=== PATIENT | female | born 1990 | race Caucasian/White ===

== ENCOUNTER 2018-12-26 00:32 | Emergency (ER) | payer SELFPAY ==
[2018-12-26 00:32] VITALS: BP 159/123; PULSE 111; RESP 18; TEMP 36.4; O2SAT 99; BMI 23.0
--- NOTE | 2018-12-26 02:49 | ED.VIS.GEN ---
History of Present Illness Chief Complaint: Dental Narrative: Patient is a 28-year-old female who presents with right facial pain and swelling. Symptoms began yesterday morning. She has developed market swelling over her right jaw. She complains of pain and difficulty opening the mouth. No fevers. No nausea or vomiting. She has a prior history of dental problems but no prior dental procedures or surgeries. No history of symptoms to this extent. She takes no daily medications. Past Medical History - Allergies and Home Meds Allergies/Adverse Reactions: Allergies No Known Allergies Allergy (Verified 12/26/18 00:35) Primary Care Physician: Care Physician,No Primary [Primary Care Provider] - Past Medical History: None Smoking Status: Current every day smoker Review of Systems All systems negative except as indicated General: Denies: Fever ENT: Reports: - - Dental/facial pain and swelling Cardiovascular: Denies: Chest pain Respiratory: Denies: Dyspnea Gastrointestinal: Denies: Nausea, Vomiting Physical Exam Vital Signs/Narrative: Vital Signs Temp Pulse Resp BP Pulse Ox 12/26/18 00:32 97.5 F L 111 H 18 159/123 H 99 Inital Vital Signs reviewed: Yes General: Well nourished Head: Normocephalic Eyes: EOMI ENT: - - Marked swelling of the right face/jaw, trismus, focal severe decay of the right mandibular second and third molars, no fluctuance Cardiovascular: - - Heart is regular tachycardia without murmur Respiratory: No distress, CTA bilaterally Abdomen: Soft Skin: Normal color Neurological: Alert Psychological: Normal affect Diagnostic/Tx/Re-eval Impressions Soft Tissue Neck CT 12/26/18 04:40 IMPRESSION: Large amount of soft tissue swelling overlying the right mandibular region with reactive lymph nodes.. Periapical lucency adjacent to the right first mandibular molar concerning for dental abscess formation. Electronically Signed: Ferdinand Fortune, at 5:42 EST Tel , Service support , 12/26/18 04:40 CT Neck [Soft Tissue Neck without Contr] [CT] Stat - Medical Decision Making Initial plan was for laboratory studies and a CT with IV contrast. Multiple IV attempts were made. Multiple IV attempts were made by nursing and myself under ultrasound guidance. I actually was able to obtain IV access under ultrasound guidance with a 20-gauge IV in the left upper arm. This flushed easily. She was given Toradol. However when IV fluids were started she was complaining of severe burning. She requested that the IV be removed. We are unable to draw blood from this either. I then discussed femoral venipuncture for laboratory studies which was also refused. Therefore a CT was obtained without contrast. This does show a large amount of soft tissue swelling and findings consistent with a periapical abscess. Patient was able to swallow pills here and was given Leadore and clindamycin. She is resting comfortably on reevaluation. Given the degree of swelling and that she does have an abscess she will likely need some type of intervention. I spoke to Dr. Noel, local oral maxillofacial surgeon who is willing to see the patient in follow-up. I will have patient call his office. Patient will be discharged on Leadore and clindamycin. He does understand to return for new or worsening symptoms. She was discharged. ED Disposition - Plan for ED Patient: Disposition: Home or Assisted Living Diagnosis: Periapical abscess Instructions: Dental Abscess Prescriptions: Clindamycin HCl [Cleocin] 300 mg PO Q6H #40 cap Prescription Printed Hydrocodone Bitart/Apap 5-325 [Leadore 5MG-325MG] 1 tab PO Q6H PRN PRN 3 Days #10 tab PRN Reason: Pain Prescription Printed Referrals: Care Physician,No Primary [Primary Care Provider] - Bernardino Noel DDS [STAFF PHYSICIAN] -
[2018-12-26] MEDS: 0.9% Normal Saline 1,000 ML 999 ML IV (04:31)
[2018-12-26] MEDS: Ketorolac 30 MG/ML Syringe IV (04:31)
--- NOTE | 2018-12-26 04:40 | CT_ITS ---
STUDY: CT SOFT TISSUE NECK WITHOUT CONTRAST REASON FOR EXAM: Female, 28 years old. Right facial pain and swelling RADIATION DOSAGE (If Supplied By Facility): CTDIvol = ( 11.92 ) mGy, DLP = ( 327.30 ) mGycm TECHNIQUE: The patient was scanned in a multi-detector CT scanner. High resolution transaxial imaging was performed without the administration of intravenous contrast material. Sagittal and coronal images were reconstructed. Individualized dose optimization techniques were used for this CT. COMPARISON: None. FINDINGS: There is diffuse soft tissue swelling overlying the right aspect of the face anteriorly and adjacent to the mandible. There are multiple scattered dental caries visualized. There is a large periapical lucency involving the right mandibular first molar (ADA #30). There are mildly enlarged submandibular lymph nodes likely reactive in nature. No large fluid collection is visualized Evaluation limited due to lack of IV contrast. Normal bilateral parotid glands. Normal bilateral applications chemist spaces. Normal bilateral parapharyngeal spaces. Normal bilateral carotid spaces. Normal bilateral sublingual and submandibular glands and spaces. Normal visualized nasopharynx. Normal retropharyngeal space. Normal perivertebral space. Normal visualized bilateral faucial tonsils. The visualized tongue, tongue base and oropharynx are normal. There is no demonstrated solid or cystic mass lesion. Normal epiglottis, bilateral vallecula and hypopharynx. The pre-epiglottic and paraglottic adipose spaces are normal. Normal visualized bilateral piriform sinuses, aryepiglottic folds, vocal cords, and arytenoid-cricoid articulations. Normal subglottic trachea. Normal bilateral lobes of the thyroid gland. Normal visualized pulmonary apices. Normal visualized paranasal sinuses. Normal visualized cervical spine. CT/Soft Tissue Neck without Contr IMPRESSION: Large amount of soft tissue swelling overlying the right mandibular region with reactive lymph nodes.. Periapical lucency adjacent to the right first mandibular molar concerning for dental abscess formation. Electronically Signed: Ferdinand Fortune, at 5:42 EST Tel , Service support ,
--- NOTE | 2018-12-26 04:46 | ED.RN ---
PT REQUESTS THAT HER IV BE REMOVED IMMEDIATELY. IV WAS PLACED VIA ULTRASOUND. SHE STATES IT IS TOO PAINFUL. SITE FLUSHES, NON EDEMATOUS, NOT REDDENED AND NOT LEAKING. IV SITE REMOVED. PT DOES NOT WANT ANYMORE ATTEMPTS
[2018-12-26] MEDS: HYDROcodone Bitartrate/Apap 5/325 Tablet PO (05:09)
[2018-12-26] MEDS: Clindamycin HCl 150 MG Capsule 300 MG PO (05:09)
[2018-12-26 05:56] VITALS: BP 139/90; PULSE 104; RESP 16; TEMP 36.9; O2SAT 98
[2018-12-26 06:19] VITALS: BP 139/90; PULSE 104; RESP 14
== END 2018-12-26 06:20 | disposition home or self-care (01) ==
PROVIDERS: Emergency Provider Emergency Medicine
DX: K04.7 Periapical abscess without sinus (principal); F17.200 Nicotine dependence, unspecified, uncomplicated
CPT/HCPCS: 70490; 96374; 99285; J7030; A4216; J0295